=== PATIENT | male | born 1955 | race Caucasian/White ===

== ENCOUNTER 2019-11-06 11:08 | Emergency (ER) | payer OTHER, SELFPAY ==
--- NOTE | ~2019-11-06 | CT_ITS ---
EXAMINATION: CT brain wo con DATE: 11/06/2019 13:05 INDICATION: Left leg paresthesias post head injury one day prior TECHNIQUE: Computed tomography (CT) of the head was performed without intravenous contrast. Sagittal and coronal reconstructions were performed. Automated exposure control and iterative reconstruction t echnique were employed. The dose-length product was 605.33 mGy-cm. COMPARISON: None FINDINGS: No fracture. No acute intracranial hemorrhage, acute infarction or abnormal extra axial fluid collect ion. Ventricles are normal and symmetric. No mass/mass effect. Changes of bilateral intraocular lens replacement. The paranasal sinuses and middle ear cavities are clear. Small left and tiny right masto id effusions. IMPRESSION: 1. No fracture or acute intracranial process. Reviewed, dictated and finalized at location A.
[2019-11-06 11:17] VITALS: BP 149/95; PULSE 59; RESP 18; TEMP 36.9; O2SAT 99
[2019-11-06 11:25] VITALS: BP 153/91; PULSE 49; RESP 14; O2SAT 100
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
[2019-11-06 13:30] VITALS: BP 128/87; PULSE 48; RESP 16; O2SAT 100
== END 2019-11-06 13:30 | disposition home or self-care (01) ==
PROVIDERS: Emergency Provider Emergency Medicine; PCP Family Medicine Adolescent Medicine
DX: R20.2 Paresthesia of skin (principal); H26.9 Unspecified cataract; H40.9 Unspecified glaucoma; S09.90XA Unspecified injury of head, initial encounter; W22.8XXA Striking against or struck by other objects, initial encounter
CPT/HCPCS: 70450; 99284

== ENCOUNTER 2021-10-19 00:19 | Day surgery (SDC) | payer OTHER, SELFPAY ==
[2021-10-05 08:22] VITALS: BMI 22.1
--- NOTE | 2021-10-18 13:03 | WPDANESEPPF ---
Anes - Initial Pre Proc Eval Procedure: Operation Date: 10/19/21 07:30 Proposed Procedures p Screening Colonoscopy - Jonny Bright MD Date/Time: 10/18/21 13:03 Surgeon: Jonny Bright MD Pre Op Diagnosis: family hx of colon polyps Patient Data Age: 65 Gender: M Height: 1.75 m Weight: 68.2 kg Allergies Allergy/AdvReac Type Severity Reaction Status Date / Time No Known Allergies Allergy Verified 10/05/21 08:38 Home Medications Medication Instructions Recorded Confirmed Type latanoprost 0.005 % eye drops 1 drp EACH EYE HS 11/06/19 10/05/21 History sodium sul 1.479 gram-potas ch See Rx Instructions PO PER PKG DIR 07/31/21 10/05/21 Rx 0.188 gram-magnes sul 0.225 gram #24 tabs tablet (Sutab) ibuprofen 200 mg tablet 200 mg PO PRN PRN Pain 10/05/21 10/05/21 History Patient hx anesthesia problems: none Family hx anesthesia problems: none Results Review: All pre-operative results and documents have been reviewed as part of the pre-operative evaluation. [facility] Past Medical History Medical History (Updated 07/10/21 @ 11:10 by Rashid Norton MD) Cataracts, bilateral Glaucoma Surgical History Surgical History (Updated 07/09/21 @ 08:20 by Rashid Norton MD) History of cataract surgery 2010, bilateral Hx of cholecystectomy 2006 Family History Family History (Updated 07/10/21 @ 10:35 by Leti Salmeron MA) Mother Carcinoma of colon Colon polyp Heart disease Father Cerebrovascular accident Heart disease Sibling Cerebrovascular accident Depression Hypertension Social History Social History (Updated 07/10/21 @ 10:35 by Leti Salmeron MA) Smoking status: Never smoker Second hand tobacco smoke exposure: Yes Alcohol intake: current Alcohol use details: social Substance use: never Substance use type: does not use Living arrangements: with family Gender identity (if verbalized by the patient): Male Sexual Orientation (if Verbalized by the Patient): Straight or Heterosexual Spiritual care concerns: No Agree to blood products: Yes Anes - Eval Final PreProcedure Day of Procedure 10/18/21 13:03 Patient weight: overweight Heart: regular rate and rhythm Lungs: clear to auscultation Airway: Mallampati scale class II Neurological: alert and oriented Last oral intake: >/= 8 hours ASA classification: II Emergent: no Anesthetic plan: proceed Anesthesia type and monitoring: general GIVS and standard monitoring Results Review: All pre-operative results and documents have been reviewed as part of the pre-operative evaluation. Informed Consent: The patient's anesthetic plan and its attendant risks and benefits were discussed with the patient/family/POA. Questions were solicited and answers provided to the satisfaction of the patient/family/POA.
[2021-10-19 06:24] VITALS: BP 140/79; PULSE 47; RESP 18; TEMP 36.6; O2SAT 100; BMI 22.0
[2021-10-19] MEDS: LACTATED RINGERS 1,000 ML 150 ML IV CONT (06:34)
--- NOTE | 2021-10-19 07:12 | PM.IMHP ---
H&P: HPI History of Present Illness Date/Time: 10/19/21 07:12 Chief Complaint: Family history of colon cancer. Narrative: This is a 65-year-old white male patient presents for screening colonoscopy. Patient reports his current weight appetite bowel movements are normal. He denies abdominal pain. Patient has had no bleeding. Family history is significant his mother had colon cancer. Patient presents today for neoplasia screening colonoscopy. Review of Systems Review of Systems: Review of systems noncontributory. [facility] Past Medical History Medical History (Updated 10/19/21 @ 07:13 by Jonny Bright MD) Cataracts, bilateral Glaucoma Surgical History Surgical History (Updated 07/09/21 @ 08:20 by Rashid Norton MD) History of cataract surgery 2010, bilateral Hx of cholecystectomy 2006 Family History Family History (Updated 07/10/21 @ 10:35 by Leti Salmeron MA) Mother Carcinoma of colon Colon polyp Heart disease Father Cerebrovascular accident Heart disease Sibling Cerebrovascular accident Depression Hypertension Social History Social History (Updated 07/10/21 @ 10:35 by Leti Salmeron MA) Smoking status: Never smoker Second hand tobacco smoke exposure: Yes Alcohol intake: current Alcohol use details: social Substance use: never Substance use type: does not use Living arrangements: with family Gender identity (if verbalized by the patient): Male Sexual Orientation (if Verbalized by the Patient): Straight or Heterosexual Spiritual care concerns: No Agree to blood products: Yes Meds Home Medications and Allergies Home Medications Medication Instructions Recorded Confirmed Type latanoprost 0.005 % eye drops 1 drp EACH EYE HS 11/06/19 10/05/21 History sodium sul 1.479 gram-potas ch See Rx Instructions PO PER PKG DIR 07/31/21 10/05/21 Rx 0.188 gram-magnes sul 0.225 gram #24 tabs tablet (Sutab) ibuprofen 200 mg tablet 200 mg PO PRN PRN Pain 10/05/21 10/05/21 History Allergies Allergy/AdvReac Type Severity Reaction Status Date / Time No Known Allergies Allergy Verified 10/05/21 08:38 Vital Signs Vital Signs - 24 hr 10/19/21 06:24 Temperature 97.9 F Pulse Rate 47 L Respiratory Rate 18 Blood Pressure 140/79 Pulse Oximetry 100 Oxygen Delivery Room Air Exam Narrative: Physical exam reveals patient to be alert. Vital signs stable. HEENT exam is unremarkable. Patient is anicteric. Lungs are clear to auscultation and percussion. Heart is without murmur or extra sounds. Abdominal exam bowel sounds are present soft nontender with no organomegaly. Digital external rectal exam is normal. Assessment and Plan Assessment and plan (1) Family history of colon cancer in mother: Code(s): Z80.0 - Family history of malignant neoplasm of digestive organs Status: Acute Assessment and Plan: Patient's mother had colon cancer. Patient shas had no particular GI symptoms. Plan is for screening colonoscopy. Further recommendations will be given after endoscopy.
[2021-10-19 07:55] VITALS: BP 109/59; PULSE 55; RESP 12; O2SAT 100
[2021-10-19 08:05] VITALS: BP 109/59; PULSE 52; RESP 19; O2SAT 100
[2021-10-19 08:15] VITALS: BP 153/83; PULSE 52; RESP 18; O2SAT 100
== END 2021-10-19 08:19 | disposition home or self-care (01) ==
PROVIDERS: PCP Family Medicine Adolescent Medicine; Visit Provider Internal Medicine Gastroenterology
PROC: 0DJD8ZZ Inspection of Lower Intestinal Tract, Via Natural or Artificial Opening Endoscopic (ICD-10-PCS; CPT 45378; principal; 2021-10-19 07:30)
DX: Z12.11 Encounter for screening for malignant neoplasm of colon (principal); D12.2 Benign neoplasm of ascending colon; K64.8 Other hemorrhoids; Z80.0 Family history of malignant neoplasm of digestive organs; H40.9 Unspecified glaucoma
CPT/HCPCS: 45385; 88305; J2704; J7120

== ENCOUNTER 2022-11-19 14:23 | Emergency (ER) | payer MEDICARE, SELFPAY ==
--- NOTE | ~2022-11-19 | XR_ITS ---
XR wrist LT 2V, XR hand LT 2V 11/19/2022 14:39 Indication: Left wrist and hand pain after fall Procedure: 2 views left wrist and 2 views left hand Comparison: No prior studies for comparison. Findings: There is a comminuted intra-articular fracture distal aspect of the radius with mild dorsal angulation. There is ulnar styloid avulsion fracture. 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 No other fracture or traumatic malalignment. Impression: 1: Comminuted intra-articular fracture distal aspect of the left radius with dorsal angulation. 2: Ulnar styloid avulsion fracture. Reviewed, dictated and finalized at location L. Impression: 1: Comminuted intra-articular fracture distal aspect of the left radius with do rsal angulation. 2: Ulnar styloid avulsion fracture. Impression: 1: Comminuted intra-articular fracture distal aspect of the left radius with do rsal angulation. 2: Ulnar styloid avulsion fracture.
[2022-11-19 14:45] VITALS: BP 94/54; PULSE 49; RESP 18; TEMP 36.7; O2SAT 100
--- NOTE | 2022-11-19 17:48 | ED.UPPEXIN ---
HPI - Extremity Injury (Upper) General Chief Complaint: Extremity Injury, Upper Stated Complaint: wrist injury, fall off stool Time Seen by Provider: 11/19/22 16:56 Source: patient Mode of arrival: EMS Limitations: no limitations History of Present Illness HPI narrative: Patient is a 66-year-old male who presents ED via EMS with report of left wrist pain. Patient reports he was standing on a stool in his garage tonight trying to reach for something when he fell onto his left side. He attempted to brace himself with his left arm. He complains of pain to his left wrist. Denies any other injuries. He did sustain a small abrasion to his right lower leg, but denies pain associated with this. He has been able to ambulate since the fall without issue. Denies numbness or tingling. He did not hit his head or lose consciousness. Related Data Home Medications Medication Instructions Recorded Confirmed latanoprost 0.005 % eye drops 1 drp EACH EYE HS 11/06/19 10/05/21 ibuprofen 200 mg tablet 200 mg PO PRN PRN Pain 10/05/21 10/05/21 Allergies Allergy/AdvReac Type Severity Reaction Status Date / Time No Known Allergies Allergy Verified 11/19/22 16:19 Review of Systems Review of Systems: CONSTITUTIONAL: Denies fever, chills, or sweats. SKIN: See HPI. MUSCULOSKELETAL: See HPI. NEUROLOGIC: See HPI. All systems reviewed & are unremarkable except as noted in HPI and below PMFSH Past Medical History Medical History Cataracts, bilateral Glaucoma Surgical History Surgical History History of cataract surgery 2010, bilateral Hx of cholecystectomy 2006 Family History Family History Mother Carcinoma of colon Colon polyp Heart disease Father Cerebrovascular accident Heart disease Sibling Cerebrovascular accident Depression Hypertension Social History Social History Smoking status: Never smoker Second hand tobacco smoke exposure: Yes Alcohol intake: current Alcohol use details: social Substance use: never Substance use type: does not use Living arrangements: with family Occupation/Education: retired Gender identity (if verbalized by the patient): Male Sexual Orientation (if Verbalized by the Patient): Straight or Heterosexual Spiritual care concerns: No Agree to blood products: Yes Exam Narrative: GENERAL: Well appearing, well-nourished, non-toxic, in no acute distress. HEAD: Normocephalic, atraumatic. NECK: Supple. No adenopathy, no masses. RESPIRATORY: Airway patent, respirations nonlabored. CARDIOVASCULAR: Regular rate and rhythm without murmurs, rubs, or gallops. Radial pulses 2+ and equal bilaterally. MUSCULOSKELETAL: Limited range of motion of left wrist due to pain. EMS splint applied. Tenderness over distal radius and ulna. No significant Colles' deformity noted on exam. Sensation intact to all fingers. Good capillary refill. Patient able to wiggle fingers. SKIN: Warm, dry, normal color. No rashes. Small abrasion to the right lower forrester, nontender, no active bleeding. NEURO: A&O X3. Speech clear. Cranial nerves II-XII grossly intact. Steady gait. No ataxic movements. PSYCHIATRIC: Appropriate mood and affect. Normal interaction. Course Vital Signs Vital signs: Vital Signs Temperature 98.1 F 11/19/22 14:45 Pulse Rate 49 L 11/19/22 14:45 Respiratory Rate 18 11/19/22 14:45 Blood Pressure 94/54 L 11/19/22 14:45 Pulse Oximetry 100 11/19/22 14:45 Oxygen Delivery Room Air 11/19/22 14:45 Temperature 98.1 F 11/19/22 14:45 Pulse Rate 63 11/19/22 18:31 Respiratory Rate 20 11/19/22 18:31 Blood Pressure 102/65 11/19/22 18:31 Pulse Oximetry 99 11/19/22 18:31 Oxygen Delivery Room Air 0
[2022-11-19] MEDS: KETOROLAC (*BKC) 60 MG/2 ML VIAL IM (17:55)
[2022-11-19] MEDS: HYDROcodone/acetaminophen (*CRX) 5-325 MG TABLET 1 TAB PO (17:55)
[2022-11-19 17:56] VITALS: BP 101/69; PULSE 52; RESP 20; O2SAT 100
[2022-11-19 18:31] VITALS: BP 102/65; PULSE 63; RESP 20; O2SAT 99
== END 2022-11-19 18:32 | disposition home or self-care (01) ==
PROVIDERS: Emergency Provider Physician Assistant; PCP Family Medicine Adolescent Medicine
DX: S52.572A Other intraarticular fracture of lower end of left radius, initial encounter for closed fracture (principal); S52.612A Displaced fracture of left ulna styloid process, initial encounter for closed fracture; H40.9 Unspecified glaucoma; Z98.42 Cataract extraction status, left eye; Z98.41 Cataract extraction status, right eye; Z90.49 Acquired absence of other specified parts of digestive tract; W17.89XA Other fall from one level to another, initial encounter
CPT/HCPCS: 29125; 73100; 73120; 96372; 99284; A4565; A9270; J1885

== ENCOUNTER 2022-11-23 09:02 | Outpatient (CLI) | payer MEDICARE, SELFPAY ==
--- NOTE | 2022-11-23 09:19 | ECG_ITS ---
Measurements Intervals [place] Rate: 47 P: 70 [place]: 155 QRS: 60 QRSD: 90 T: 61 QT: 430 QTc: 384 Interpretive Statements SINUS BRADYCARDIA VOLTAGE CRITERIA FOR LVH PEAKED T WAVES- CONSIDER HYPERKALEMIA OR ISHCEMIA ABNORMAL ECG NO PREVIOUS ECG AVAILABLE FOR COMPARISON Electronically Signed On 11-23-2022 16:52:29 CDT by Ariel Byrnes D.O.
== END 2022-11-23 09:03 | disposition home or self-care (01) ==
PROVIDERS: PCP Family Medicine Adolescent Medicine; Visit Provider Anesthesiology
DX: Z01.818 Encounter for other preprocedural examination (principal); E78.00 Pure hypercholesterolemia, unspecified; R00.1 Bradycardia, unspecified; R94.31 Abnormal electrocardiogram [ECG] [EKG]
CPT/HCPCS: 93005

== ENCOUNTER 2022-11-25 02:10 | Day surgery (SDC) | payer MEDICARE, SELFPAY ==
[2022-11-22 13:29] VITALS: BMI 22.1
--- NOTE | 2022-11-22 13:49 | PC.NURSE ---
Report to the Outpatient Waiting Room, entrance under the green pavilion located off [facility], at time _12:30PM on date __11/25/22 . Planned Procedure Time: __2:30PM . Time changes happen often and if your time is changed the preop area will call you the afternoon before. - You and your visitor will be asked to self-screen and do not enter if you have any COVID symptoms. - A mask is optional within the hospital at this time. Patients may have clear liquids (water, carbonated beverages, clear teas, apple juice) until 3 hours prior to surgery with a maximum of 20 ounces. - No food from midnight until time of surgery Take the following medications with a SIP of water the morning of surgery: __HYDROCODONE NEEDED DO NOT STOP ANY OF YOUR OTHER PRESCRIPTION MEDICATIONS PRIOR TO SURGERY ?EXCEPT THE FOLLOWING Medications to discontinue per physician __HOLD ALL NSAIDS NOW (11/22/22)PER DR MARRUFO, HOLD ALL VITAMINS/SUPPLEMENTS 3 DAYS PRE-OP PER ANESTHESIA-STARTING NOW (11/22/22) Please no make-up, nail cymraes, hairspray, perfume, deodorant, or body powder the day of surgery. No jewelry (including any body piercings) or valuables the day of surgery, leave them at home. Please take a shower or bath the night before, or the morning of, surgery with an antibacterial soap. Wear comfortable, loose fitting clothing. Children are encouraged to wear pajamas. - Jewelry must be removed prior to entering the operating room. Rings and piercings that are not removed may be cut off. - The hospital will not accept responsibility for valuables. - Please leave all valuables, including medications, at home the day of surgery. If you are going home after surgery, a licensed reach lift truck driver must drive you home. - NO public transportation without another adult if you receive anesthesia. - We recommend that an adult stay with you for 24 hours following discharge. - We also recommend that you do not drive, make important decision, drink alcoholic beverages, or take any drugs that were not prescribed by your health care provider for at least 24 hours after your discharge time. Follow any additional instructions given to you from your surgeon. If you or anyone in your household have experienced Covid symptoms in the past week, please notify your surgeon or the nurse liaison at the phone number below for possible testing. Telephone instructions given to __PATIENT and asked if any additional questions and then verbalized understanding. Patient advised to call surgeon office or pre surgery nurse liaison [phone] if any additional questions.
[2022-11-25] VITALS (9 sets, daily range): BP systolic 116–161; BP diastolic 71–98; PULSE 49–72; RESP 10–16; TEMP 36.1–36.4; O2SAT 100
--- NOTE | ~2022-11-25 | XR_ITS ---
EXAMINATION: XR surgery orthopedic DATE: 11/25/2022 18:26 INDICATION: ORIF left wrist fracture TECHNIQUE: 3 fluoroscopic images of the left wrist were obtained during procedure performed by Dr. Veronica gifford. Radiologist was not present for the imaging or procedure. The amount of fluoroscopy time us ed during this procedure was 2.0 minutes. COMPARISON: 11/19/2022 FINDINGS: Interval reduction and volar T plate and screw fixation of a distal metaphyseal fracture of the left radius. Alignment is now near-anatomic with for degree volar tilt of the distal articular surface. Th e ulnar styloid fracture remains unfixed but has also been reduced to essentially anatomic alignment. There is a shallow concavity to the contour of the radial side of the proximal articular surface of the lunate but without evident sharply angulated discontinuous cortex or linear lucency or sclerosis to suggest acute fracture. 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 IMPRESSION: 1. Near-anatomic alignment of a ulnar styloid avulsion fracture and distal radial metaphyseal fractur e of the latter post internal reduction and volar T plate and screw fixation 2. Shallow concavity along the radial side of the proximal articular surface of the lunate which coul d represent an age-indeterminate impaction fracture or sequela of chronic osteonecrosis. Reviewed, dictated and finalized at location A. IMPRESSION: 1. Near-anatomic alignment of a ulnar styloid avulsion fracture and distal radi al metaphyseal fracture of the latter post internal reduction and volar T plate and screw fixation 2. Shallow concavity along the radial side of the proximal articular surface of the lunate which could represent an age-indeterminate impaction fracture or se quela of chronic osteonecrosis.
[2022-11-25] MEDS: KETOROLAC 15 MG/ML VIAL (*BKC) IV PUSH (13:33)
[2022-11-25] MEDS: ACETAMINOPHEN 500 MG TABLET 1000 MG PO (13:33)
[2022-11-25] MEDS: LACTATED RINGERS 1,000 ML 30 ML IV CONT ×2 (13:39→17:08)
--- NOTE | 2022-11-25 13:51 | WPDANESEPPF ---
Anes - Initial Pre Proc Eval Procedure: Operation Date: 11/25/22 14:30 Proposed Procedures p Open Reduction Internal Fixation Left Distal Radius Fracture - Herberth Magana MD Date/Time: 11/25/22 13:51 Surgeon: Herberth Magana MD Pre Op Diagnosis: left distal radius fx Patient Data Age: 66 Gender: M Height: 1.75 m Weight: 67.4 kg Last Vital Signs Temp 97.6 F 11/25/22 13:11 Pulse 49 L 11/25/22 13:11 Resp 16 11/25/22 13:11 BP 157/87 H 11/25/22 13:11 Pulse Ox 100 11/25/22 13:11 O2 Del Method Room Air 11/25/22 13:11 Allergies Allergy/AdvReac Type Severity Reaction Status Date / Time No Known Allergies Allergy Verified 11/25/22 13:06 Home Medications Medication Instructions Recorded Confirmed Type latanoprost 0.005 % eye drops 1 drp EACH EYE HS 11/06/19 11/25/22 History ibuprofen 200 mg tablet 400 mg PO PRN PRN Pain 10/05/21 11/25/22 History atorvastatin 20 mg tablet 20 mg PO DAILY #100 tabs 10/30/22 11/25/22 Rx hydrocodone 5 mg-acetaminophen 325 1 tablet PO Q6H PRN pain #20 tabs 11/19/22 11/25/22 Rx mg tablet glucosamine-chondroitin 250 mg-200 2 tablet PO DAILY 11/22/22 11/25/22 History mg tablet (Osteo Bi-Flex) lactobacillus comb no.10 20 30,000 mmu cells PO DAILY 11/22/22 11/25/22 History billion cell capsule (Probiotic) nutritional supplement-fiber oral 6 ea PO DAILY 11/22/22 11/25/22 History liquid vit C 250 mg-vit E 90 mg-zinc 40 1 tablet PO BID 11/22/22 11/25/22 History mg-copper 1 [id number] capsule (PreserVision AREDS-2) oxycodone-acetaminophen 5 mg-325 1 - 2 tablet PO Q4-6H PRN pain #30 11/25/22 Rx mg tablet tabs Patient hx anesthesia problems: none Family hx anesthesia problems: none Results Review: All pre-operative results and documents have been reviewed as part of the pre-operative evaluation. PMFSH Past Medical History Medical History Cataracts, bilateral Glaucoma Surgical History Surgical History History of cataract surgery 2010, bilateral Hx of cholecystectomy 2006 Family History Family History Mother Carcinoma of colon Colon polyp Heart disease Father Cerebrovascular accident Heart disease Sibling Cerebrovascular accident Depression Hypertension Social History Social History (Updated 11/21/22 @ 15:56 by Tammy Elkins) Smoking status: Never smoker Second hand tobacco smoke exposure: Yes Alcohol intake: current Drinks per week: 4 Alcohol use details: social Substance use: never Substance use type: does not use Lack of Transportation: No Lack of Food: Never True Current Housing: I Have Housing Concerned About Future Housing: No Difficulty Paying Gas/Electric Bills: No Difficulty Paying for Meds: No Currently Unemployed: No Education: Master's Degree or Higher Difficulty w/ Childcare or Family Care: No Living arrangements: with family Additional living arrangements comments: Occupation/Education: retired Gender identity (if verbalized by the patient): Male Sexual Orientation (if Verbalized by the Patient): Straight or Heterosexual Spiritual care concerns: No Agree to blood products: Yes Anes - Eval Final PreProcedure Day of Procedure 11/25/22 13:51 Patient weight: normal Heart: regular rate and rhythm Lungs: clear to auscultation Neurological: alert and oriented Last oral intake: >/= 8 hours ASA classification: II Emergent: no Anesthetic plan: proceed Anesthesia type and monitoring: general LMA and standard monitoring Results Review: All pre-operative results and documents have been reviewed as part of the pre-operative evaluation. Informed Consent: The patient's anesthetic plan and its attendant risks and benefits were discussed with the patient/family/POA. Questions
--- NOTE | 2022-11-25 15:31 | WPDHPUPDATE1 ---
History and Physical Update Update Date/Time: 11/25/22 15:31 History and Physical has been reviewed, including an updated exam of the patient. There are NO changes in the patient's condition. Risks, benefits, and alternatives have been discussed and questions answered. Patient agrees to proceed with procedure.
[2022-11-25] MEDS: ceFAZolin 2 GM/D5W 50 ML 2 GM/50 ML BAG IVPB (16:02)
[2022-11-25] MEDS: BUPIVACAINE/EPINEPHRINE 0.5% 50 ML VIAL 30 ML INFILTRATE (16:37)
--- NOTE | 2022-11-25 17:26 | P.OP_ITS ---
Procedure Note - Detailed Date of Procedure 11/25/22 Pre-op Diagnosis left distal radius fx Post-op Diagnosis Same Procedure Performed ORIF left distal radius fracture with volar plate. Surgeon Herberth Magana MD Balloon Artist Miguelina Lim PA-C Anesthesia General Indications Displaced extra-articular distal radius fracture. Findings Good bone quality. Anatomic reduction. Description of Procedure Preoperative antibiotics were given. A general anesthetic was administered. The hand was prepped and draped in the usual sterile fashion with a well-padded tourniquet. The limb was exsanguinated and the tourniquet inflated to 250 millimeters of mercury. A longitudinal incision was created over the flexor carpi radialis tendon. Dissection was brought down through the sheath. The pronator quadratus was identified and released off of the radius. The fracture was carefully exposed and cleared of debris. Reduction was obtained with traction and manipulation. Fluoroscopy was used to confirm anatomic reduction. The volar plate was placed on the radius and the position was confirmed. Provisional pins were placed. The dynamic cortical screw was applied. The plate was fine tuned and fluoroscopy was use to confirm that the joint would not be violated. Subsequent distal pins and screws were placed.. The wound was irrigated and closed. 3-0 Monocryl suture was used to reapproximate the pronator quadratus. The tourniquet was released and meticulous hemostasis was confirmed. The skin was closed with 3-0 Monocryl suture and a running 4-0 Monocryl suture. Steri-Strips were applied on the skin. A sterile bulky dressing with a volar splint was applied. Implants Accu Med distal radius plate short plate standard with proximal position. Locking pets distal row. Single locking screw in the distal-most shaft screw. Estimated Blood Loss 5 Drains No Pathology None sent Complications No immediate complications Condition Stable Disposition PACU [facility] Billing Surgery - Charge Forward: Surgery Billing
[2022-11-25] MEDS: fentaNYL CITRATE INJ (*CRX) 100 MCG/2 ML VIAL 25 MCG IV PUSH ×4 (17:45→18:02)
[2022-11-25] MEDS: oxyCODONE HCL (*CRX) 5 MG TAB IR PO (18:24)
== END 2022-11-25 19:22 | disposition home or self-care (01) ==
PROVIDERS: PCP Family Medicine Adolescent Medicine; Visit Provider Orthopaedic Surgery
PROC: (CPT 25575; principal; 2022-11-25 14:30)
DX: S52.552A Other extraarticular fracture of lower end of left radius, initial encounter for closed fracture (principal); H40.9 Unspecified glaucoma; W19.XXXA Unspecified fall, initial encounter
CPT/HCPCS: 25607; 93005; 99199; A9270; C1713; J0690; J1100; J1170; J1885; J2250; J2405; J2704; J3010; J7120

== ENCOUNTER 2023-08-11 12:11 | Outpatient (CLI) | payer MEDICARE, SELFPAY ==
--- NOTE | ~2023-08-11 | US_ITS ---
EXAMINATION: US thyroid DATE: 08/11/2023 12:25 INDICATION: Hyperthyroidism. Dysphagia, unspecified. TECHNIQUE: Multiple ultrasound images of the thyroid were obtained. COMPARISON: None. FINDINGS: The right thyroid lobe measures 4.8 x 2.5 x 1.7 cm. The left thyroid lobe measures 6.0 x 2.6 x 1.8 c m. The thyroid is heterogeneous and hypoechoic. Vascularity is normal. No discrete nodule. IMPRESSION: 1. Heterogeneous thyroid, which may be seen with Graves disease or chronic lymphocytic (Damian) th yroiditis. Reviewed, dictated and finalized at location A. IMPRESSION: 1. Heterogeneous thyroid, which may be seen with Graves disease or chronic lymp hocytic (Damian) thyroiditis.
== END 2023-08-11 12:12 ==
LOC: MICIMG 12:12
PROVIDERS: PCP Family Medicine Adolescent Medicine; Visit Provider Nurse Practitioner Family
DX: E05.90 Thyrotoxicosis, unspecified without thyrotoxic crisis or storm (principal); R13.10 Dysphagia, unspecified
CPT/HCPCS: 76536